=== PATIENT | male | born 1960 | race Caucasian/White ===

== ENCOUNTER → 2017-11-25 | Outpatient (CLI) | payer OTHER ==
--- NOTE | 2017-11-25 23:21 | MR ---
EXAMINATION TYPE: MR brain and iac wo/w con DATE OF EXAM: 11/25/2017 COMPARISON: NONE HISTORY: BI Lateral hearing loss, Gadavist 10 TECHNIQUE: Multiplanar, multisequence images of the brain and brainstem is performed without and with IV contras t, utilizing 10 mL intravenous Gadavist . FINDINGS: The ventricles and sulci appear normal for age. There is no mass effect nor midline shift. There is n o sign of intracranial hemorrhage. There is there is flow void in the anterior middle and posterior c erebral arteries. There is no evidence of cortical infarct. There is minimal mucosal thickening in th e anterior ethmoid sinuses. There is no evidence of cerebral edema. There is no evidence of posterior fossa mass. Internal auditory canals appear normal. There is no sign of cerebellopontine angle mass. There is no pathologic enhancement. Temporal bones have normal signal pattern. There is no evidence of mastoiditis. Optic chiasm appears normal. IMPRESSION: Negative MR scan of the brain. Normal MR scan of the internal auditory canals. I do not s ee a cause for hearing loss. Minimal anterior ethmoid sinusitis.
== END | disposition home or self-care (01) ==
LOC: RADMRIMAIN 16:22
PROVIDERS: ATTEND Otolaryngology
DX: D33.3 Benign neoplasm of cranial nerves (principal)
CPT/HCPCS: 70553; A9581

== ENCOUNTER → 2018-12-09 | Outpatient (CLI) | payer OTHER ==
--- NOTE | 2018-12-09 11:53 | XR ---
EXAMINATION TYPE: XR chest 2V DATE OF EXAM: 12/09/2018 COMPARISON: NONE HISTORY: Shortness of breath TECHNIQUE: Frontal and lateral views of the chest are obtained. FINDINGS: Scattered senescent parenchymal changes noted. Hyperinflation compatible with COPD. No evidence for infiltrate. No evidence for atelectasis. Heart size is stable. Mediastinal structures are stable and grossly unremarkable. No evidence for hilar prominence. Degenerative changes dorsal spine. IMPRESSION: 1. No evidence for acute pulmonary disease.
== END | disposition home or self-care (01) ==
LOC: RADXRMAIN 11:17
PROVIDERS: ATTEND Family Medicine
DX: J45.909 Unspecified asthma, uncomplicated (principal)
CPT/HCPCS: 71046

== ENCOUNTER → 2019-08-05 | Outpatient (CLI) | payer OTHER ==
--- NOTE | 2019-08-05 12:09 | ECHOF ---
Referral Reason:I50.30 Congestive Heart Failure MEASUREMENTS -------- HEIGHT: 162.6 cm WEIGHT: 97.5 kg BP: 145/67 RVIDd: 3.1 cm (< 3.3) IVSd: 1.4 cm (0.6 - 1.1) LVIDd: 3.9 cm (3.9 - 5.3) LVPWd: 1.4 cm (0.6 - 1.1) IVSs: 1.7 cm LVIDs: 2.7 cm LVPWs: 1.6 cm LA Diam: 3.5 cm (2.7 - 3.8) LAESV Index (A-L): 23.41 ml/m Ao Diam: 3.2 cm (2.0 - 3.7) AV Cusp: 2.0 cm (1.5 - 2.6) MV EXCURSION: 17.354 mm (> 18.000) MV EF SLOPE: 93 mm/s (70 - 150) EPSS: 0.2 cm MV E Pernell: 0.86 m/s MV DecT: 208 ms MV A Pernell: 0.95 m/s MV E/A Ratio: 0.91 RAP: 5.00 mmHg RVSP: 30.18 mmHg TAPSE: 25.68 mm FINDINGS -------- Sinus rhythm. This was a technically good study. The left ventricular size is normal. There is moderate concentric left ventricular hypertrophy. O verall left ventricular systolic function is normal with, an EF between 60 - 65 %. The diastolic fi lling pattern is normal for the age of the patient 13.46. The right ventricle is normal in size. Normal LA size by volume 22+/-6 ml/m2. The right atrium is normal in size. Interatrial and interventricular septum intact. The aortic valve is trileaflet and appears structurally normal. The mitral valve is normal. Mild tricuspid regurgitation present. Right ventricular systolic pressure is normal at < 35 mmHg. Trace/mild (physiologic) pulmonic regurgitation. The aortic root size is normal. Normal inferior vena cava with normal inspiratory collapse consistent with estimated right atrial pre ssure of 5 mmHg. There is no pericardial effusion. CONCLUSIONS -------- 1. Sinus rhythm. 2. This was a technically good study. 3. The left ventricular size is normal. 4. There is moderate concentric left ventricular hypertrophy. 5. Overall left ventricular systolic function is normal with, an EF between 60 - 65 %. 6. The diastolic filling pattern is normal for the age of the patient 13.46 7. The right ventricle is normal in size. 8. Normal LA size by volume 22+/-6 ml/m2. 9. The right atrium is normal in size. 10. Interatrial and interventricular septum intact. 11. The aortic valve is trileaflet and appears structurally normal. 12. The mitral valve is normal. 13. Mild tricuspid regurgitation present. 14. Right ventricular systolic pressure is normal at < 35 mmHg. 15. Trace/mild (physiologic) pulmonic regurgitation. 16. The aortic root size is normal. 17. Normal inferior vena cava with normal inspiratory collapse consistent with estimated right atrial pressure of 5 mmHg. 18. There is no pericardial effusion. [employer]: Graciela Bentley RDCS
== END | disposition home or self-care (01) ==
LOC: RADECHMAIN 08:08
PROVIDERS: ATTEND Family Medicine
DX: I07.1 Rheumatic tricuspid insufficiency (principal)
CPT/HCPCS: 93306

== ENCOUNTER → 2019-11-14 | Outpatient (CLI) | payer OTHER ==
[2019-11-14 09:09] LABS: African American GFR (CKD) >90 (>60 ml/min/1.73 sqM); Blood Urea Nitrogen 19 mg/dL (9-20); Non-African American GFR(CKD) 85 (>60 ml/min/1.73 sqM)
--- NOTE | 2019-11-14 10:45 | CT ---
EXAMINATION TYPE: CT chest w con DATE OF EXAM: 11/14/2019 COMPARISON: Chest x-ray December 09, 2018 HISTORY: Dyspnea CT DLP: 535.3 mGycm. Automated Exposure Control for Dose Reduction was Utilized. TECHNIQUE: CT scan of the thorax is performed following with IV Contrast, patient injected with 100 mL of Isovue 300. FINDINGS: LUNGS: There are 6 x 5 mm right middle lobe nodule axial image 26. Some dependent atelectasis right l ower lobe with additional 7 x 4 mm pleural nodule axial image 26. There is no pleural effusion or pne umothorax seen bilaterally. The tracheobronchial tree is patent. MEDIASTINUM: There are no greater than 1 cm hilar or mediastinal lymph nodes. No cardiomegaly or pe ricardial effusion is seen. OTHER: Liver is diffusely low dense consistent with fatty infiltration. Skyi-da-cdpwrgld multilevel s purring in the spine. Slight scoliotic curvature is present. IMPRESSION: No significant acute or chronic pulmonary process. Few right-sided nodules measuring unde r 6 mm mean axis. Follow-up advised as per Fleischner Society recommendations. low-risk patients: no routine follow-up required high-risk patients: optional CT at 12 months
== END | disposition home or self-care (01) ==
LOC: RADCTMAIN 07:59
PROVIDERS: ATTEND Family Medicine
DX: R91.8 Other nonspecific abnormal finding of lung field (principal); R06.00 Dyspnea, unspecified
CPT/HCPCS: 82565; 84520; 71260; 36415; Q9967

== ENCOUNTER → 2019-12-13 | Outpatient (CLI) | payer OTHER | END | disposition home or self-care (01) | LOC: CPPFTMAIN 10:12 | PROVIDERS: ATTEND Family Medicine | DX: R06.00 Dyspnea, unspecified (principal) | CPT/HCPCS: 94060; 94726; 94729 ==

== ENCOUNTER → 2025-01-09 | Outpatient (CLI) | payer MEDICARE ==
--- NOTE | 2025-01-09 12:44 | XR ---
EXAMINATION TYPE: XR foot complete bilateral DATE OF EXAM: 01/09/2025 11:33 AM COMPARISON: None CLINICAL INDICATION: Male, 64 years old with history of M79.672, M79.671; PHH, pain TECHNIQUE: XR foot complete bilateral examined in the AP, oblique, and lateral projections. FINDINGS: No evidence of any acute osseous pathology. 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 Degeneration changes of the first digit metatarsophalangeal joint with sev ere joint space narrowing and osteophyte formation bilaterally.. Mild degeneration changes throughout the remainder of the joints. IMPRESSION: 1. No evidence of acute fracture. 2. 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 More mild d egeneration changes throughout the remainder of the joints of the foot. [facility], , 01/09/2025 12:41 PM
== END | disposition home or self-care (01) ==
LOC: RADXRMAIN 11:17
PROVIDERS: ATTEND Family Medicine
DX: M19.071 Primary osteoarthritis, right ankle and foot (principal); M19.072 Primary osteoarthritis, left ankle and foot

== ENCOUNTER → 2025-03-28 | Outpatient (CLI) | payer MEDICARE ==
--- NOTE | 2025-03-28 14:07 | US ---
EXAMINATION TYPE: US arterial LE single level DATE OF EXAM: 03/28/2025 1:38 PM COMPARISONS: None. CLINICAL INDICATION: Male, 64 years old with history of M79.662 PAIN IN LLE M79.661 PAIN IN RLE; Pain in both feet. TECHNIQUE: Systolic pressures were taken of the upper and lower extremity arteries with ankle-brachia l indices and toe brachial indices calculated bilaterally. History of: Smoker: No Hypertension: Yes Diabetic: Yes Hyperlipidemia: No TIA/CVA: No Previous Vascular Surgery: No CAD: No MA: No Vascular Ulcers: No Claudication: No Gangrene: No FINDINGS: Doppler Waveforms: Right: Multiphasic Left: Multiphasic Brachial Artery systolic pressure: Right: 138 Left: 126 Posterior Tibial artery systolic pressure: Right: 138 Left: 143 Dorsalis Pedis artery systolic pressure: Right: 138 Left: 127 Toe artery systolic pressure: Right: 101 Left: 95 Ankle-Brachial Indices: Right: 1.0 Left: 1.04 Toe Brachial Indices: Right: 0.73 Left: 0.69 (Normal > 0.6; Mild 0.35 - 0.59, Moderate 0.12 - 0.34, Severe <0.12) IMPRESSION: KHADIJAH: Right: Normal 0.9 - 1.4, Recommendation: None Left: Normal 0.9 - 1.4, Recommendation: None [facility], , 03/28/2025 2:05 PM
== END | disposition home or self-care (01) ==
LOC: RADUSWWP 13:04
PROVIDERS: ATTEND Family Medicine
DX: M79.662 Pain in left lower leg (principal); M79.661 Pain in right lower leg
CPT/HCPCS: 93922